=== PATIENT | female | born 1940 | race Two or more races ===

== ENCOUNTER 2018-09-11 17:23 | Emergency (ER) | payer OTHER ==
[~2018-09-11] VITALS: Ht 157.5 cm; Wt 80.7 kg
[2018-09-11 17:23] VITALS: BP 161/91
== END 2018-09-11 18:21 | disposition home or self-care (01) ==
LOC: ER 17:30
DX: I10 Essential (primary) hypertension (principal); Z76.0 Encounter for issue of repeat prescription
CPT/HCPCS: Z7502

== ENCOUNTER 2018-09-28 11:42 | Emergency (ER) ==
[~2018-09-28] VITALS: Ht 165.1 cm; Wt 81.2 kg
[2018-09-28 11:54] VITALS: BP 154/80
[2018-09-28] MEDS ORDERED: diphenhydrAMINE HCL 50 MG CAPSULE PO ONE (12:30)
[2018-09-28] MEDS ORDERED: predniSONE 10 MG TABLET PO ONE (12:30)
[2018-09-28] MEDS ORDERED: diphenhydrAMINE HCL 50 MG CAPSULE ONE (12:43)
[2018-09-28] MEDS ORDERED: predniSONE 10 MG TABLET ONE (12:44)
== END 2018-09-28 13:59 | disposition home or self-care (01) ==
LOC: ER 11:42
DX: L50.0 Allergic urticaria (principal); I10 Essential (primary) hypertension
CPT/HCPCS: 99283; J7512; Q0163

== ENCOUNTER 2020-12-17 11:31 | Emergency (ER) | payer OTHER ==
[~2020-12-17] VITALS: Ht 154.9 cm; Wt 73.9 kg
--- NOTE | 2020-12-17 11:44 | NUR ---
TO ER BED 1, C/O EAR PAIN FOR 3DAYS, AWAITING MD CABRALES
[2020-12-17] MEDS ORDERED: CARB15DR12 LEFT EAR (14:22)
[2020-12-17] MEDS ORDERED: OFLO5DRO5 LEFT EAR (14:22)
[2020-12-17 14:47] VITALS: BP 132/80
== END 2020-12-17 14:54 | disposition home or self-care (01) ==
LOC: ER 11:55
DX: H61.22 Impacted cerumen, left ear (principal); I10 Essential (primary) hypertension